=== PATIENT | female | born 2000 ===

== ENCOUNTER 2020-06-05 17:46 | Emergency (ER) | payer SELFPAY ==
[~2020-06-05] VITALS: Ht 162.6 cm; Wt 75.4 kg
[2020-06-05] MEDS ORDERED: SODIUM CHLORIDE FLUSH 10ML SYR IVF ONE (19:00)
--- NOTE | 2020-06-05 19:03 | NUR ---
Pt calm in bed. IV placed. Labs sent. Warm blanket given. Pt ready for CT. Will monitor. Pt states no needs at this time.
[2020-06-05 19:05] LABS: BASOPHILS % (AUTO) 1 % (0-1); EOSINOPHILS % (AUTO) 4 % (1-7); LYMPHOCYTES % (AUTO) 27 % (22-44); MD NO; MEAN CORPUSCULAR HEMOGLOBIN 28.1 pg (27.0-34.8); MEAN CORPUSCULAR HGB CONC 33.8 g/dL (32.4-35.8); MEAN PLATELET VOLUME 8.6 fL (7.4-10.4); MONOCYTES % (AUTO) 9 % (2-9); NEUTROPHILS % (AUTO) 60 % (42-75); PLATELET COUNT 345 x10^3/uL (130-400); RED BLOOD COUNT 4.82 x10^6/uL (3.82-5.3); RED CELL DISTRIBUTION WIDTH 13.1 % (9.6-15.2)
[2020-06-05 19:18] LABS: ALBUMIN 3.9 g/dL (3.4-5.0); ANION GAP 6 mmol/L (5-15); CALCIUM 8.7 mg/dL (8.5-10.1); CHLORIDE 108 mmol/L (98-107)
[2020-06-05 19:24] LABS: CREATININE 0.84 mg/dL (0.55-1.02)
[2020-06-05] MEDS ORDERED: OMNIPAQUE 350 MG/ML, 100ML BOTTLE ONE (20:16)
[2020-06-05] MEDS ORDERED: CEPHALEXIN 500 MG CAPSULE ONE (20:46)
[2020-06-05] MEDS ORDERED: KETOROLAC 30 MG/1 ML ONE (20:46)
[2020-06-05] MEDS ORDERED: CEPHALEXIN 500 MG CAPSULE PO ONE (21:00)
[2020-06-05] MEDS ORDERED: KETOROLAC 30 MG/1 ML IVPush ONE (21:00)
[2020-06-05 21:04] VITALS: BP 125/71
--- NOTE | 2020-06-05 21:05 | NUR ---
Pt medicated per order. Rx reviewed. Pt instructed to f/u with gastro. Iv DC'd intact. Patient/Caregiver given discharge instructions and they have confirmed that they understand the instructions. Patient ambulatory with steady gait.
== END 2020-06-05 21:07 | disposition home or self-care (01) ==
LOC: ED 21:00
DX: K64.8 Other hemorrhoids (principal)
CPT/HCPCS: 36415; 72193; 80048; 82040; 84703; 85025; 96374; 99285; J1885; Q9967

== ENCOUNTER 2020-11-05 11:35 | Emergency (ER) | payer OTHER ==
[~2020-11-05] VITALS: Ht 162.6 cm; Wt 69.2 kg
[2020-11-05 11:37] VITALS: BP 114/78
--- NOTE | 2020-11-05 11:40 | NUR ---
EKG DONE IN TRIAGE.
== END 2020-11-05 13:32 | disposition home or self-care (01) ==
LOC: ED 12:39
DX: B34.9 Viral infection, unspecified (principal); R94.31 Abnormal electrocardiogram [ECG] [EKG]
CPT/HCPCS: 71045; 87081; 87880; 93005; 99285